=== PATIENT | male | born 1980 | race Caucasian/White ===

== ENCOUNTER 2019-06-24 21:27 | Emergency (ER) | payer SELFPAY ==
[~2019-06-24] VITALS: Ht 198.7 cm; Wt 84.1 kg
[2019-06-24] MEDS ORDERED: LIDOCAINE 1% INJ 20 ML 20 ML VIAL ONE (21:38)
[2019-06-24] MEDS ORDERED: LIDOCAINE 1% INJ 20 ML 20 ML VIAL INJ ONE (21:45)
--- NOTE | 2019-06-24 22:13 | ED Upper Extremity ---
General Chief Complaint: Upper Extremity Stated Complaint: LT THUMB CRUSH Nursing Triage Note: pt with crush injury to left thumb with laceration, bleeding controlled Nursing Sepsis Screen: No Definite Risk Source: patient History of Present Illness Date Seen by Provider: Jun 24, 2019 Time Seen by Provider: 22:36 Initial Comments 39-year-old female presenting with complaints of left thumb injury. 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 He states that he is primarily right-handed that he writes with his left hand. He is not sure when his last tetanus booster was. He denies any other medical problems. He has no medical allergies. He takes no medicines on a daily basis. He is having severe pain to the left thumb. He can still feel the tip of his thumb and still able to move in flexion and extension of the thumb tip. Bleeding is controlled at the time of arrival as he has been holding pressure over since the injury. He does have dirt and cow manure all over his hands from working at the [employer]. The injury happened just prior to arriving in the emergency department Allergies and Home Medications Allergies Coded Allergies: No Known Drug Allergies (Unverified , 06/24/19) Home Medications Amoxicillin/Potassium Clav 1 Each Tablet, 1 EACH PO BID Prescribed by: SUDHAKAR MARROQUIN on 06/24/192341 Ibuprofen 800 Mg Tablet, 800 MG PO Q8H PRN for PAIN Prescribed by: SUDHAKAR MARROQUIN on 06/24/192341 Oxycodone HCl/Acetaminophen 1 Each Tablet, 1 EACH PO Q6H PRN for PAIN-SEVERE (8-10) Prescribed by: SUDHAKAR MARROQUIN on 06/24/19 234 Patient Home Medication List Home Medication List Reviewed: Yes Review of Systems Constitutional: no symptoms reported EENTM: no symptoms reported Respiratory: no symptoms reported Cardiovascular: no symptoms reported Gastrointestinal: no symptoms reported Genitourinary: no symptoms reported Musculoskeletal: see HPI, other (pain to the tip of his left thumb where he has the crush injury) Skin: see HPI, other (laceration to the left thumb tip) Psychiatric/Neurological: Denies Numbness, Denies Paresthesia Past Kcpajwa-Ydwhfe-Ajmheb Hx Past Med/Social Hx: Reviewed Nursing Past Med/Soc Hx Patient Social History Alcohol Use: Denies Use Recreational Drug Use: No Smoking Status: Current Everyday Smoker Type Used: Cigarettes 2nd Hand Smoke Exposure: No Recent Foreign Travel: No Contact w/Someone Who Travel: No Recent Infectious Disease Expo: No Recent Hopitalizations: No Physical Abuse: No Sexual Abuse: No Mistreated: No Fear: No Seasonal Allergies Seasonal Allergies: No Past Medical History Surgeries: No Respiratory: No Cardiac: No Neurological: No Genitourinary: No Gastrointestinal: No Musculoskeletal: No Endocrine: No HEENT: No Cancer: No Psychosocial: No Integumentary: No Blood Disorders: No Adverse Reaction/Blood Tranf: No Physical Exam Vital Signs Vital Signs - First Documented 06/24/19 21:41 Temp 36.5 Pulse 84 Resp 22 B/P (MAP) 123/77 (92) Pulse Ox 98 O2 Delivery Room Air Capillary Refill : Less Than 3 Seconds Height, Weight, BMI Height: '" Weight: lbs. oz. kg; 21.00 BMI Method: General Appearance: WD/WN, no apparent distress Cardiovascular: normal peripheral pulses Wrist: Yes normal inspection, Yes non-tender, Yes no evidence of injury, Yes normal ROM Hand: Left, deformity (left thumb tip with extensive laceration), laceration (extensive laceration with left thumb tip), nail injury (left thumb nail lifted from nail bed with laceration extending under the nail), soft tissue tenderness (left thumb tip), swelling (left thumb tip) Neurologic/Tendon: normal sensation (sensation intact to light touch of left thumb tip), normal motor functions, normal tendon functions (able to flex and ex tend left thumb) Neurologic/Psychiatric: alert, normal mood/affect, oriented x 3 Skin: warm/dry, ecchymosis (left thumb tip) Procedures/Interventions Wound Location: Upper Extremities (left thumb) Wound Length (cm): 4.3 Wound's Depth, Shape: nail-avulsed, contused tissue, bone Wound Explored: contaminated Irrigated w/ Saline (ccs): 1000 Betadine Prep?: Yes Anesthesia: 1% Lidocaine (digiital block) Volume Anesthetic (ccs): 10 Suture: Ethlion Suture Size: 4-0 Number of Sutures: 11 Layer Closure?: 1 Sterile Dressing Applied?: Yes Progress After obtaining verbal consent the thumb had a turnicot applied at 2230. Then a liter of sterile saline with Betadine and was irrigated. The wound. The nail was reapproximated into the nailbed. Then using 4-0 Ethilon 11 stitches were used to approximate the wound edges. Also a stitch was applied. The nail and a hole was made through the nail to allow pressure and blood to be released from under the nail. The patient tolerated this well without any immediate complications. The turnicot was released at 2316. A sterile nonstick dressing was applied with triple antibiotic and Xeroform dressing. A bulky gauze dressing was over that and a aluminum foam splint. Progress/Results/Core Measures Results/Orders My Orders Orders - SUDHAKAR MARROQUIN MD Lidocaine 1% Inj 20 Ml (Xylocaine 1% Inj (06/24/19 21:38) Lidocaine 1% Inj 20 Ml (Xylocaine 1% Inj (06/24/19 21:45) Finger(S) (06/24/19 21:45) Dipht,Pertuss(Acell),Tet Adult (Boostrix (06/24/19 22:30) Cefazolin Injection (Ancef Injection) (06/24/19 22:16) Ed Iv/Invasive Line Start (06/24/19 22:16) Metronidazole 500mg/100ml Ivpb (Flagyl 5 (06/24/19 22:16) Rx-Oxycodone/Apap 5-325 Mg (Rx-Percocet (06/24/19 23:30) Rx-Amoxicillin/Clav Tab (Rx-Augmentin Ta (06/24/19 23:30) Medications Given in ED Current Medications Medications Dose Ordered Sig/Tracy Route Start Time Stop Time Status Last Admin Dose Admin Diphtheria/ Tetanus/Acell Pertussis 0.5 ml ONCE ONCE IM 06/24/19 22:30 06/24/19 22:31 DC 06/24/19 22:36 0.5 ML Vital Signs/I&O 06/24/19 06/24/19 21:41 23:45 Temp 36.5 36.4 Pulse 84 62 Resp 22 16 B/P (MAP) 123/77 (92) 103/50 Pulse Ox 98 97 O2 Delivery Room Air Room Air Blood Pressure Mean: 92 POS Progress Progress Note #1: Progress Note after confirming intact sensation and motor and tendon function to left thumb a digital block was placed with 10 ml of 1% plain lidocaine before obtaining xrays of the left thumb to evaluate for fracture and foreign bodies. Progress Note #2: Progress Note X-ray shows comminuted fracture of the distal phalanx tuft on the left thumb. I reviewed these results with the patient and then after obtaining verbal consent irrigated his wound with a liter of sterile saline and Betadine. I then approximated the wound edges and reapproximated the nail into the nail bed area. After placing 11 stitches of 4-0 Ethilon night reviewed the risk of infection with the patient and he did receive a tetanus booster as well as a gram of Ancef and 500 of Flagyl. Will discharge on Augmentin and Percocet for when necessary pain. He has ibuprofen for pain as well. Counseled on follow-up and return precautions. Advised he may still need to see a hand specialist especially if he is not improving or has concerns for possible infection. Diagnostic Imaging Diagonstic Imaging: Xray Plain Films/CT/US/NM/MRI: other (left thumb) Comments NAME: SWETHA KAM [facility] REC#: [id number] PT STATUS: REG ER : 1980 PHYSICIAN: SUDHAKAR MARROQUIN MD ADMIT DATE: 06/24/19/ER FS Draft POSDate of Exam:06/24/19 FINGER(S) EXAMINATION: Left fingers. INDICATION: Injury A single AP view of the left hand and 2 views of the left thumb were obtained. There are no prior studies available for comparison. There is a severely comminuted fracture involving the tuft of the distal phalanx of the thumb. There is also soft tissue edema in this area. No other fracture or acute bony abnormality is appreciated. There is no sign of a radiopaque foreign body. IMPRESSION: There is a severely comminuted fracture of the tuft of the distal phalanx of the thumb. There is no acute bony abnormality noted otherwise. Dictated on workstation # [id number] Dict: 06/24/192215 Trans: 06/24/192219 [facility] [id number] Interpreted by: RAPHAEL STANFORD MD Electronically signed by: Departure Impression Primary Impression: Open displaced fracture of distal phalanx of left thumb Qualified Codes: S62.522B - Displaced fracture of distal phalanx of left thumb, initial encounter for open fracture Additional Impressions: Laceration of left thumb without foreign body with damage to nail Qualified Codes: S61.112A - Laceration without foreign body of left thumb with damage to nail, initial encounter Crush injury of hand Qualified Codes: S67.22XA - Crushing injury of left hand, initial encounter Disposition: HOME, SELF-CARE Condition: Stable Departure-Patient Inst. Decision time for Depature: 23:34 Referrals: NO,LOCAL PHYSICIAN (PCP) Primary Care Physician [facility] Patient Instructions: Crush Injury (DC), Finger Fracture (DC), Laceration Repair With Stitches (DC) Add. Discharge Instructions: Try to keep finger elevated above heart level to help with pain and swelling. May apply ice 15-20 minutes every few hours to help with pain and swelling. Keep dressing clean and dry for first 2-3 days. Follow up with [facility] to be seen for wound care and monitor for infection and complications with the thumb. If it looks like it is getting infected or having problems then you should be seen by a hand specialist which could be with [address] or with [facility], are some of the closest specialists. If the [facility] can not see you Wednesday or Wednesday for a wound dressing change you could come back here to the ER and be seen Wednesday and I could see you to help with the first dressing change. If you have signs of infection such as redness streaking up your hand and arm, fever over 101 F, or pus draining from the wound then you need to seek medical care immediately as you may need IV antibiotics or hand surgery. Make sure you take all the antibiotics as prescribed to try and prevent infection. Keep the wound covered, especially if you are somewhere it might get dirty and infected. Wash with antibacterial soap and water and apply antibiotic ointment 2-3 times a day and apply a non stick dressing once the initial dressing has been changed. All discharge instructions reviewed with patient and/or family. Voiced understanding. Scripts Ibuprofen (Ibuprofen) 800 Mg Tablet 800 MG PO Q8H PRN for PAIN for 10 Days, #30 TAB 0 Refills Prov: SUDHAKAR MARROQUIN MD 06/24/19 Oxycodone HCl/Acetaminophen (Oxycodone-Acetaminophen 5-325) 1 Each Tablet 1 EACH PO Q6H PRN for PAIN-SEVERE (8-10) MDD 6 for 5 Days, #20 TAB 0 Refills Prov: SUDHAKAR MARROQUIN MD 06/24/19 Amoxicillin/Potassium Clav (Augmentin 875-125 Tablet) 1 Each Tablet 1 EACH PO BID for 10 Days, #20 TAB 0 Refills Prov: SUDHAKAR MARROQUIN MD 06/24/19 SUDHAKAR MARROQUIN MD Jun 24, 2019 22:13 POS
[2019-06-24] MEDS ORDERED: ceFAZolin INJECTION 1,000 MG in WATER (STERILE) FOR INJECTION 10 ML IV STA (22:16)
[2019-06-24] MEDS ORDERED: metroNIDAZOLE 500MG/100ML IVPB 100 ML IV STA (22:16)
--- NOTE | 2019-06-24 22:20 | Diagnostic Imaging Report ---
EXAMINATION: Left fingers. INDICATION: Injury A single AP view of the left hand and 2 views of the left thumb were obtained. There are no prior studies available for comparison. There is a severely comminuted fracture involving the tuft of the distal phalanx of the thumb. There is also soft tissue edema in this area. No other fracture or acute bony abnormality is appreciated. There is no sign of a radiopaque foreign body. IMPRESSION: There is a severely comminuted fracture of the tuft of the distal phalanx of the thumb. There is no acute bony abnormality noted otherwise. Dictated by: Dictated on workstation # [id number]
[2019-06-24] MEDS ORDERED: TETANUS,DIPTH,PERTUSS P/F (BOOSTRIX) 0.5 ML VIAL IM ONE (22:30)
[2019-06-24] MEDS ORDERED: RX-OXYCODONE/APAP 5-325 MG #4 TAB PK PO PRN (23:30)
[2019-06-24] MEDS ORDERED: RX-AMOX/CLAV. (AUGMENTIN) 500MG TAB PPK#2 PO STA (23:30)
[2019-06-24] MEDS ORDERED: OXYC-471 PO (23:42)
[2019-06-24] MEDS ORDERED: IBUP-1780 PO (23:42)
[2019-06-24] MEDS ORDERED: AMOX-358 PO (23:42)
[2019-06-24 23:45] VITALS: BP 103/50
== END 2019-06-24 23:45 | disposition home or self-care (01) ==
LOC: ER FS 21:30
DX: S62.522B Displaced fracture of distal phalanx of left thumb, initial encounter for open fracture (principal); S67.02XA Crushing injury of left thumb, initial encounter; F17.210 Nicotine dependence, cigarettes, uncomplicated; W23.1XXA Caught, crushed, jammed, or pinched between stationary objects, initial encounter; Y92.59 Other trade areas as the place of occurrence of the external cause
CPT/HCPCS: 29130; 73140; 90715

== ENCOUNTER 2021-01-07 22:13 | Emergency (ER) | payer SELFPAY ==
[~2021-01-07 22:13] MED LIST: AMOX-358 PO; IBUP-1780 PO; OXYC1TAB11 PO
--- NOTE | 2021-01-07 22:35 | ED CPR ---
HPI-CPR General Chief Complaint: Code Blue Stated Complaint: CODE BLUE Source of Information: EMS Exam Limitations: Other History of Present Illness Date Seen by Provider: Jan 07, 2021 Time Seen by Provider: 22:15 Initial Comments Patient is a 40-year-old male found unresponsive hanging outside by his spouse. His last known time seen alive was 30 minutes prior to being found. Patient is immediately cut down and EMS was contacted. Upon their arrival the patient was unresponsive in asystole with ligature sears around his neck. An IO was established, the patient was intubated and chest compressions were performed with multiple doses of epinephrine on route to the hospital. Patient never achieved return of spontaneous circulation and is asystolic on ED arrival with fixed and dilated pupils it is cold to the touch. CPR efforts have been ongoing 60 minutes prior to your arrival. Chest compressions were continued for 1 minute and had an ultrasound was placed over the patient's heart which confirmed asystole. The patient was pronounced at 2217. While enforcement and the coron er were notified. notification was performed by on [facility] services. Witnessed Arrest: No Allergies and Home Medications Allergies Coded Allergies: No Known Drug Allergies (Unverified , 06/24/19) Home Medications Amoxicillin/Potassium Clav 1 Each Tablet, 1 EACH PO BID Prescribed by: SUDHAKAR MARROQUIN on 06/24/19 234 Ibuprofen 800 Mg Tablet, 800 MG PO Q8H PRN for PAIN Prescribed by: SUDHAKAR MARROQUIN on 06/24/19 234 Oxycodone HCl/Acetaminophen 1 Each Tablet, 1 EACH PO Q6H PRN for PAIN-SEVERE (8- 10) Prescribed by: SUDHAKAR MARROQUIN on 06/24/19 234 Patient Home Medication List Home Medication List Reviewed: Yes Review of Systems Review of Systems Constitutional: no symptoms reported Past Iuuyomp-Qojrmx-Dmjjyn Hx Past Med/Social Hx: Reviewed Nursing Past Med/Soc Hx Patient Social History Type Used: Cigarettes 2nd Hand Smoke Exposure: No Recent Hopitalizations: No Seasonal Allergies Seasonal Allergies: No Past Medical History Surgeries: No Respiratory: No Cardiac: No Neurological: No Genitourinary: No Gastrointestinal: No Musculoskeletal: No Endocrine: No HEENT: No Cancer: No Psychosocial: No Integumentary: No Blood Disorders: No Adverse Reaction/Blood Tranf: No Physical Exam Vital Signs Capillary Refill : Height, Weight, BMI Height: '" Weight: lbs. oz. kg; 21.00 BMI Method: General Appearance: Other (Pallor, unresponsive, cold to the touch, no spontaneous respirations, no heart tones, pupils fixed and dilated. Intubated) HEENT: Other (Fixed and dilated pupils) Neck: Other (Single ligature donal around anterior neck) Respiratory: Lungs Clear Cardiovascular: Other (No cardiac sounds) Gastrointestinal: Soft, Other (Nondistended) Extremity: Other (I/O right tibia) Neurologic/Psychiatric: Other (Unresponsive GCS 3) Skin: Cool, Pallor Procedures/Interventions Suture Size: 4-0 Departure Communication (Admissions) Suspected traumatic cardiac pulmonary arrest secondary to asphyxiation. Aggressive ACLS protocols fall prior to the ED arrival including intubation, serial rounds of epinephrine and chest compressions. Asystole confirmed upon ED arrival and patient pronounced. Recovery Collector notified. Impression Primary Impression: Cardiopulmonary arrest Additional Impression: Traumatic asphyxiation Disposition: 20 Condition: Departure-Patient Inst. Referrals: NO,LOCAL PHYSICIAN (PCP/Family) Primary Care Physician FERNANDO MARX DO Jan 07, 2021 22:35
[2021-01-07 23:25] VITALS: BP 0/0
== END 2021-01-07 23:25 | disposition expired ==
LOC: EDUNIT# 22:13 → ER FS 22:14
DX: T71.193A Asphyxiation due to mechanical threat to breathing due to other causes, assault, initial encounter (principal); I46.9 Cardiac arrest, cause unspecified